=== PATIENT | male | born 1975 | race Two or more races ===

== ENCOUNTER 2022-11-10 16:12 | Outpatient (REF) | payer MEDICAID, SELFPAY | END 2022-11-10 16:13 | disposition home or self-care (01) | LOC: HO.HHCLNP 16:12 | PROVIDERS: Visit Provider Emergency Medicine | DX: R10.13 Epigastric pain (principal) | CPT/HCPCS: 87338 ==

== ENCOUNTER 2022-11-23 10:43 | Outpatient (AMB) | payer MEDICAID, SELFPAY ==
--- NOTE | 2022-11-23 10:45 | MHC.OFFVIS ---
Intake Vital Signs 11/23/22 10:49 Height 5 ft 7 in Weight 159 lb BMI 24.9 BP 119/68 Blood Pressure Location Rt brachial Position Sitting Pulse 87 Intake Visit Reasons: Inguinal hernia Intake Note: Patient referred for inguinal hernia. C/o pain on rt lower abd. Has been present for 2 yrs. Denies constipation. 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 Because of progression of symptoms, presents here for further evaluation. Patient has no other GI issues or complaints. He is tolerating a diet he is having normal bowel habits. Does occasional heavy lifting. Chart was reviewed patient evaluated; patient was recently incarcerated [facility] Medical History (Updated 11/23/22 @ 10:53 by JEROME Ashby) Anxiety Depression Anemia Social History (Updated 11/23/22 @ 10:52 by JEROME Ashby) Tobacco use type: Smokeless Tobacco Physical Exam Vital Signs: Last Vital Signs Pulse 87 11/23/22 10:49 BP 119/68 11/23/22 10:49 BMI result Body Mass Index 24.9 Const Other: Multiple tattoos throughout upper chest and extremities and neck. Chest Other: Chest breath sounds bilaterally, HS 1 and 2. GI Other: Patient was examined both supine and standing with Valsalva. Abdomen soft, scaphoid. Small approximately 2 cm umbilical hernia reducible. Left groin negative. Genitalia within normal limits. Very large/complete/scrotal right inguinal hernia. Reducible. Assessment & Plan Assessment & Plan (1) Right inguinal hernia: Code(s): K40.90 - Unilateral inguinal hernia, without obstruction or gangrene, not specified as recurrent (2) Umbilical hernia: Code(s): K42.9 - Umbilical hernia without obstruction or gangrene Plan I discussed with the patient risks, benefits, alternatives of open repair with mesh of both right inguinal hernia and umbilical hernia. This included but not limited to bleeding, infection, recurrence, numbness, pain, scarring the patient wishes to proceed. All questions were answered. Arrangements will be made for this. Coding Level of Care Code New Pt Level 5 (83133) Diagnoses Right inguinal hernia K40.90 Umbilical hernia K42.9
[2022-11-23 10:49] VITALS: BP 119/68; PULSE 87; BMI 24.9
== END 2022-11-23 11:13 | disposition home or self-care (01) ==
PROVIDERS: PCP Emergency Medicine; Referring Provider Emergency Medicine; Visit Provider Surgery
DX: K40.90 Unilateral inguinal hernia, without obstruction or gangrene, not specified as recurrent (principal); K42.9 Umbilical hernia without obstruction or gangrene
CPT/HCPCS: 99204

== ENCOUNTER → 2022-11-23 10:43 | Outpatient (BNVA) | payer MEDICAID, SELFPAY | PROVIDERS: PCP Emergency Medicine; Referring Provider Emergency Medicine; Visit Provider Surgery ==

== ENCOUNTER 2022-11-26 14:10 | Outpatient (REF) | payer MEDICAID, SELFPAY ==
[2022-11-26 15:57] LABS: MANUAL DIFF FLAG NO
[2022-11-26 16:12] LABS: Basophils Absolute Auto 0.1 X10*3/uL (0.0-0.2); Basophils Percent Auto 0.6 % (0-2); Eosinophils Absolute Auto 0.2 X10*3/uL (0.0-0.4); Eosinophils Percent Auto 1.8 % (0-4); Hematocrit 40.4 % (42.0-52.0); Hemoglobin 12.5 g/dl (14.0-18.0); Imm Gran Abs Auto 0.18 X10*3/uL (0.00-0.03); Imm Gran Pct Auto 1.5 % (0.0-0.4); Lymphocytes Absolute Auto 2.6 X10*3/uL (1.2-4.9); Lymphocytes Percent Auto 21.7 % (20-40); Mean Corpuscular HGB Conc 30.9 g/dl (31.0-36.0); Mean Corpuscular Volume 67.9 fL (80.0-98.0); Mean Platelet Volume 10.5 fL (9.4-12.4); Monocytes Absolute Auto 1.4 X10*3/uL (0.1-1.2); Monocytes Percent Auto 11.7 % (2-11); Neutrophils Absolute Auto 7.5 x10*3/uL (2.0-8.3); Neutrophils Percent Auto 62.7 % (45-73); Platelet Count 335 X10*3/uL (160-400); Red Blood Count 5.95 X10*6/uL (4.60-5.80); Red Cell Distribution Width 17.2 % (11.0-16.0)
[2022-11-26 16:24] LABS: Alanine Aminotransferase 46 U/L (0-40); Albumin Level 4.1 g/dL (3.5-5.0); Alkaline Phosphatase 68 U/L (39-117); Anion Gap 13 (12-20); Aspartate Amino Transferase 44 U/L (5-37); Bilirubin Total 0.3 mg/dL (0.0-1.0); Blood Urea Nitrogen 12 mg/dL (9-16); Calcium 9.7 mg/dL (8.4-10.2); Carbon Dioxide 26 mmol/L (22-29); Chloride 104 mmol/L (96-108); Estimated Glomerular Filt Rate > 60; Glucose Random 77 mg/dL (60-115); Potassium 4.1 mmol/L (3.3-5.1); Sodium 139 mmol/L (135-145); Total Protein 7.4 g/dL (6.5-8.0)
== END 2022-11-26 14:11 | disposition home or self-care (01) ==
LOC: HO.HHCL 14:10
PROVIDERS: Visit Provider Internal Medicine Geriatric Medicine
DX: K29.70 Gastritis, unspecified, without bleeding (principal); B96.81 Helicobacter pylori [H. pylori] as the cause of diseases classified elsewhere; D64.9 Anemia, unspecified
CPT/HCPCS: 36415; 80053; 85025

== ENCOUNTER 2022-11-29 08:20 | Outpatient (REF) | payer MEDICAID, SELFPAY ==
[2022-11-29 12:13] LABS: Cholesterol 212 mg/dL (<200); HDL Cholesterol 44 mg/dL (>40); LDL Cholesterol Calculated 143 mg/dL (<100); Triglycerides 127 mg/dL (<150)
== END 2022-11-29 08:21 | disposition home or self-care (01) ==
LOC: HO.HHCL 08:20
PROVIDERS: Visit Provider Internal Medicine Geriatric Medicine
DX: Z13.220 Encounter for screening for lipoid disorders (principal)
CPT/HCPCS: 36415; 80061

== ENCOUNTER 2022-12-01 07:14 | Day surgery (SDC) | payer MEDICAID, SELFPAY ==
[2022-11-29 10:15] VITALS: BMI 24.9
--- NOTE | 2022-11-30 10:35 | HO.ANESPROP2 ---
Documented by User: Claudia Medina NP 11/30/22 10:39 HPI - Anesthesia Eval Consult details Narrative: 47yo M for Right Open Hernia Repair Inguinal, Open Umblilical Hernia PMFSH Active Problems Active Problems: All Active Problems (Updated 11/29/22 @ 10:13 by Jessica Meyre RN) Umbilical hernia (Acute) Right inguinal hernia (Acute) Past Medical History Medical History (Updated 11/29/22 @ 10:14 by Jessica Meyer RN) GERD (gastroesophageal reflux disease) Anxiety Depression Anemia Surgical History Surgical History (Updated 11/29/22 @ 10:13 by Jessica Meyer RN) History of open reduction and internal fixation (ORIF) procedure Surgical history unknown Social History Social History (Updated 11/29/22 @ 10:13 by Jessica Meyer RN) Patient Tobacco Use Status: Current everyday Tobacco user Tobacco use type: Smokeless Tobacco Use of substances other than those prescribed or required for medical reasons: Yes Are you DNR?: No Advance Directives: No Advance Directives Information Provided: Yes Meds Allergies Allergy/AdvReac Type Severity Reaction Status Date / Time No Known Allergies Allergy Verified 11/23/22 10:51 Home Medications Medication Instructions Recorded Confirmed Last Taken Type famotidine 20 mg tablet 20 mg PO BID 11/29/22 11/29/22 12/01/22 06:00 History omeprazole 20 mg capsule,delayed 20 mg PO DAILY 11/29/22 12/01/22 12/01/22 06:00 History release acetaminophen 500 mg tablet 1,000 mg PO Q6H PRN moderate pain 12/01/22 12/01/22 12/01/22 06:00 History Exam Exam Date and Time: November 30, 2022 1035 Height,Weight and Vital Signs: Height 5 ft 7 in Weight 72.121 kg Pertinent Lab Results Pertinent Lab Results: Laboratory Tests 11/26/22 14:13 WBC 12.0 H Hgb 12.5 L Hct 40.4 L Plt Count 335 Sodium 139 Potassium 4.1 Chloride 104 Carbon Dioxide 26 BUN 12 Creatinine 0.79 Assessment and Plan Assessment Anesthesia Assessment: Chart Reviewed Documented by User: Beto Lim MD 12/01/22 10:54 HPI - Anesthesia Eval Consult details Narrative: 47yo M for Right Open Hernia Repair Inguinal, Open Umblilical Hernia GERD PMFSH Past Medical History Medical History (Updated 11/29/22 @ 10:14 by Jessica Meyer RN) GERD (gastroesophageal reflux disease) Anxiety Depression Anemia Functional capacity: independent ambulation Family History Family history of problems with anesthesia: No Surgical History Surgical History (Updated 11/29/22 @ 10:13 by Jessica Meyer RN) History of open reduction and internal fixation (ORIF) procedure Surgical history unknown History of Problems with Anesthesia: No Social History Social History (Updated 11/29/22 @ 10:13 by Jessica Meyer RN) Patient Tobacco Use Status: Current everyday Tobacco user Tobacco use type: Smokeless Tobacco Use of substances other than those prescribed or required for medical reasons: Yes Are you DNR?: No Advance Directives: No Advance Directives Information Provided: Yes Meds Allergies Allergy/AdvReac Type Severity Reaction Status Date / Time No Known Allergies Allergy Verified 11/23/22 10:51 Home Medications Medication Instructions Recorded Confirmed Last Taken Type famotidine 20 mg tablet 20 mg PO BID 11/29/22 11/29/22 12/01/22 06:00 History omeprazole 20 mg capsule,delayed 20 mg PO DAILY 11/29/22 12/01/22 12/01/22 06:00 History release acetaminophen 500 mg tablet 1,000 mg PO Q6H PRN moderate pain 12/01/22 12/01/22 12/01/22 06:00 History Exam Airway Mallampati Class: III TM Dist: <=3cm Neck ROM: Full Loose/Missing/Broken Teeth: Yes Assessment and Plan Assessment Anesthesia Assessment: Anesthesia Plan Discussed Final Anesthetic Review Family History of Problems with Anesthesia: No History of Problems with Anesthesia: No NPO: Yes ASA Class: II Final Preanesthetic Review: Meds/Allgs Chart Reviewed, Consent Obtained/Reviewed and Anes Risks/Benef Reviewed Patient Risk: Intermediate Procedure Risk: Intermediate Anesthetic Plan Anesthetic Plan: GA and Agree w/ Assess. and Plan Disposition: Standard PACU
--- NOTE | 2022-11-30 14:28 | MHC.SHP ---
Pre-Procedural Eval Section A Date of Service: 11/30/22 The patient is an INPATIENT: No Changes since office visit: No Cold of Flu in the past 2 weeks, No New Medical Problems, No Changes in Medication and No Patient answered all questions The History & Physical has been completed within 30 days and I have reviewed it.: Yes Section B Chief Complaint: Unilateral inguinal hernia, without obstruction or Allergies: Allergies Allergy/AdvReac Type Severity Reaction Status Date / Time No Known Allergies Allergy Verified 11/23/22 10:51 Plan I have reviewed the history and physical and performed a pertinent physical examination on my patient. No changes have occurred unless specified. Time Spent With Patient Time: Total time managing care of this patient today ____ minutes.
[2022-12-01] VITALS (10 sets, daily range): BP systolic 109–133; BP diastolic 72–90; PULSE 58–70; RESP 16–20; TEMP 36.6–36.8; O2SAT 98–100
[2022-12-01] MEDS: Lactated Ringers 1,000 ML 100 ML IVCONT (08:23)
--- NOTE | 2022-12-01 10:52 | W.PM.OPN ---
Operative Note Operative Note Date of Service: 12/01/22 Narrative: Preoperative diagnosis: [] 1. right complete/scrotal inguinal hernia 2. Incarcerated umbilical hernia Postop diagnosis: [] same Procedure [] 1. open right inguinal herniorrhaphy with Bard mesh 2. Open repair incarcerated umbilical hernia with Bard mesh Surgeon: [ [place]] Parts Facilitator: [] Type of Anesthesia: [] general Indication for surgery: [] 1.large Indirect complete right inguinal hernia extending into the scrotum. 2. Incarcerated umbilical hernia approximately 2 cm with omental contents Findings: [] patient brought to the operating room, placed on operative table in supine position, and after adequate level of general anesthesia was induced, the patient's abdomen the right groin and scrotum were prepped and draped in usual sterile fashion. Commencing with the right groin, a small right rikki inguinal incision was made and carried down through skin, subcutaneous tissue, Tree's fascia. External oblique fibers were opened direction with care to isolate and preserve the ilioinguinal nerve throughout the procedure. Spermatic cord was identified and retracted from the field. No direct hernia was demonstrated. A very large indirect hernia sac extended into the scrotum. This was from the cord structures. The indirect hernia was reduced. A Bard plug was placed in the indirect defect, and sutured inferiorly to the inguinal ligament, and superiorly to the transversalis fascia using interrupted 0 Ethibond suture. A completion the procedure, mesh was in good position and covered inguinal floor with no gaps and no tension. Was irrigated, secured hemostasis, and closed in the following manner; external oblique fascia was closed using running 2-0 Vicryl suture. Tree's fascia was reapproximated using up to 3-0 Vicryl sutures. Interrupted inverted deep dermal 3-0 Vicryl sutures followed by running subcuticular 4-0 Vicryl sutures were placed. Steri-Strips and sterile dressings were applied. Next the umbilical hernia was approached using a small infraumbilical incision carried down through skin, subcutaneous tissue, where hernia sac was identified and from the posterior aspect of the umbilicus. Dissection was carried down to the fascia with the sac was opened and incarcerated omental contents along with sac were amputated using Bovie. Fascia margins were circumferentially cleared. A Bard mesh was placed in this defect, and the superficial layer of the mesh was sutured to the fascia a circumferentially using interrupted 0 Ethibond suture. At completion procedure, mesh was in good position with no gaps and no tension. Wound was irrigated, secured hemostasis. Closed the following manner; posterior aspect of the umbilicus was tacked to the wound floor using up to 3-0 Vicryl sutures. Skin was closed using interrupted inverted dermal 3-0 Vicryl sutures followed by Steri-Strips and sterile dressings. Each wound was infiltrated 0.5% Marcaine / 1% lidocaine. Sponge, needle, instrument counts reported correct. Patient tolerated the procedure well and emerged anesthesia stable condition. EBL minimal. Ipsilateral testicle was intrascrotal at completion of the procedure.
[2022-12-01] MEDS: oxyCODONE HCl Immed Release 5 MG TABLET PO (11:03)
[2022-12-01] MEDS: Acetaminophen 325 MG TABLET 650 MG PO (11:03)
[2022-12-01] MEDS: HYDROmorphone HCl 0.5 MG/0.5 ML SYRINGE 0.25 MG IVPUSH ×2 (11:04→11:25)
== END 2022-12-01 12:11 | disposition home or self-care (01) ==
PROVIDERS: PCP Internal Medicine Geriatric Medicine; Visit Provider Surgery
PROC: (CPT 49505; principal; 2022-12-01 09:30)
DX: K40.90 Unilateral inguinal hernia, without obstruction or gangrene, not specified as recurrent (principal); K42.0 Umbilical hernia with obstruction, without gangrene; K21.9 Gastro-esophageal reflux disease without esophagitis; D64.9 Anemia, unspecified; F32.A Depression, unspecified; F41.9 Anxiety disorder, unspecified; Z79.899 Other long term (current) drug therapy; F17.290 Nicotine dependence, other tobacco product, uncomplicated
CPT/HCPCS: 49505; 49592; 88304; C1781; J0690; J1100; J1170; J2250; J2405; J2795

== ENCOUNTER → 2022-12-01 07:14 | Outpatient (BNV) | payer MEDICAID, SELFPAY | PROVIDERS: PCP Internal Medicine Geriatric Medicine; Visit Provider Surgery | DX: K40.90 Unilateral inguinal hernia, without obstruction or gangrene, not specified as recurrent (principal); K43.0 Incisional hernia with obstruction, without gangrene | CPT/HCPCS: 49505; 49592 ==

== ENCOUNTER 2022-12-13 10:58 | Outpatient (AMB) | payer MEDICAID, SELFPAY ==
--- NOTE | 2022-12-13 11:17 | MHC.OFFVIS ---
Intake Vital Signs 12/13/22 11:24 Weight 158 lb BP 112/63 Blood Pressure Location Rt brachial Position Sitting Pulse 75 Intake Visit Reasons: S/p open RIH & Umbilical hernia repairs Intake Note: Patient here s/p open RIH and umbilical hernia repairs. Reports incisions healing well. Denies bleeding or oozing. Finished rx pain meds. 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 Aside from incisional discomfort is doing well. He is tolerating a diet having normal bowel habits. He has been increasing his activity level. [facility] Medical History GERD (gastroesophageal reflux disease) Anxiety Depression Anemia Surgical History Right inguinal hernia (12/01/22) Umbilical hernia (12/01/22) History of open reduction and internal fixation (ORIF) procedure Surgical history unknown Social History Patient Tobacco Use Status: Current everyday Tobacco user Tobacco use type: Smokeless Tobacco Physical Exam Vital Signs: Last Vital Signs Pulse 75 12/13/22 11:24 BP 112/63 12/13/22 11:24 GI Other: Umbilical and right groin wounds well healed. Assessment & Plan Assessment & Plan (1) Right inguinal hernia: Onset Date: 12/01/22 Comment: Dr. Pascual Salvador Code(s): K40.90 - Unilateral inguinal hernia, without obstruction or gangrene, not specified as recurrent (2) Umbilical hernia: Onset Date: 12/01/22 Comment: Dr. Pascual Salvador Code(s): K42.9 - Umbilical hernia without obstruction or gangrene Plan Patient has been given local instructions, and will follow-up p.r.n.. Incidentally, he has some penile cysts which he wishes to have evaluated by Urology. Arrangements were made for this. Coding Level of Care Code Global (22873) Diagnoses Right inguinal hernia K40.90 Umbilical hernia K42.9
[2022-12-13 11:24] VITALS: BP 112/63; PULSE 75
== END 2022-12-13 11:49 | disposition home or self-care (01) ==
PROVIDERS: PCP Emergency Medicine; Visit Provider Surgery
DX: K40.90 Unilateral inguinal hernia, without obstruction or gangrene, not specified as recurrent (principal); K42.9 Umbilical hernia without obstruction or gangrene
CPT/HCPCS: 99024

== ENCOUNTER → 2022-12-13 10:58 | Outpatient (BNVA) | payer MEDICAID, SELFPAY | PROVIDERS: PCP Emergency Medicine; Visit Provider Surgery ==

== ENCOUNTER 2023-05-13 15:27 | Outpatient (REF) | payer MEDICAID, SELFPAY ==
[2023-05-13 16:55] LABS: Basophils Percent Auto 0.4 % (0-2); Eosinophils Absolute Auto 0.1 X10*3/uL (0.0-0.4); Eosinophils Percent Auto 0.7 % (0-4); Hematocrit 41.1 % (42.0-52.0); Hemoglobin 12.9 g/dl (14.0-18.0); Imm Gran Abs Auto 0.04 X10*3/uL (0.00-0.03); Imm Gran Pct Auto 0.4 % (0.0-0.4); Lymphocytes Absolute Auto 2.6 X10*3/uL (1.2-4.9); Lymphocytes Percent Auto 23.6 % (20-40); MANUAL DIFF FLAG SCAN; Mean Corpuscular HGB Conc 31.4 g/dl (31.0-36.0); Mean Corpuscular Hemoglobin 21.3 pg (27.0-33.0); Mean Corpuscular Volume 67.9 fL (80.0-98.0); Mean Platelet Volume 10.6 fL (9.4-12.4); Monocytes Absolute Auto 1.1 X10*3/uL (0.1-1.2); Monocytes Percent Auto 10.4 % (2-11); Neutrophils Percent Auto 64.5 % (45-73); Platelet Count 274 X10*3/uL (160-400); Red Blood Count 6.05 X10*6/uL (4.60-5.80); Red Cell Distribution Width 18.8 % (11.0-16.0); SCAN SMEAR FLAG 1; White Blood Count 10.9 X10*3/uL (4.8-10.8)
[2023-05-13 16:56] LABS: PLT ABN DIST 1
[2023-05-13 17:49] LABS: SLIDE REVIEW VERIFIED
[2023-05-13 18:39] LABS: Alanine Aminotransferase 12 U/L (0-40); Albumin Level 4.1 g/dL (3.5-5.0); Alkaline Phosphatase 67 U/L (39-117); Aspartate Amino Transferase 18 U/L (5-37); Bilirubin Direct 0.1 mg/dL (0.0-0.5); Bilirubin Total 0.3 mg/dL (0.0-1.0); Iron 65 mcg/dL (45-160); Percent Iron Saturation 21 % (15-50); Total Iron Binding Capacity 308 mcg/dL (228-428); Total Protein 7.4 g/dL (6.5-8.0); Unsaturated Iron Binding 243 ug/dL
[2023-05-13 18:53] LABS: Ferritin 45 ng/mL (20-250)
[2023-05-16 08:41] LABS: HBS Num1 0.24 mIU/mL (0-7.99); HBsAGNum1 0.43 S/CO (0.00-0.99); Hepatitis B Core Antibody Nonreactive (Nonreactive); Hepatitis B Surface Antigen Negative (Negative); ~Hepatitis B Surface Antibody NONREACTIVE (Nonreactive)
== END 2023-05-13 15:28 | disposition home or self-care (01) ==
LOC: HO.HHCL 15:27
PROVIDERS: Visit Provider Nurse Practitioner
DX: Z11.3 Encounter for screening for infections with a predominantly sexual mode of transmission (principal); D64.9 Anemia, unspecified; R74.8 Abnormal levels of other serum enzymes
CPT/HCPCS: 36415; 80076; 82728; 83540; 85025; 86704; 86706; 87340

== ENCOUNTER 2023-08-18 21:09 | Emergency (ER) | payer OTHER, SELFPAY ==
--- NOTE | ~2023-08-18 | XR_ITS ---
EXAMINATION: XR ELBOW, LEFT CLINICAL INFORMATION: Pain and swelling after trauma COMPARISON: None available. TECHNIQUE: AP, lateral, and oblique views of the left elbow. FINDINGS: There is soft tissue swelling overlying the olecranon. The bones and soft tissues are otherwise unremarkable. No fracture or joint effusion. Alignment is anatomic. Joint spaces are maintained. XR/XR elbow LT min 3V IMPRESSION: Soft tissue swelling overlying the olecranon. No fracture or malalignment.
[2023-08-18 21:11] VITALS: BP 117/73; PULSE 79; RESP 16; TEMP 36.7; O2SAT 99; BMI 25.1
--- NOTE | 2023-08-18 21:46 | ED_ITS ---
HPI - Extremity Problem General Chief complaint: Extremity Injury, Upper Stated complaint: work inj, elbow swelling Time Seen by Provider: 08/18/23 21:46 Source: patient Mode of arrival: ambulatory Limitations: no limitations History of Present Illness ED Provider: Kali Wiseman PA-C HPI Narrative: 47 yo male presents to the ER for evaluation of left elbow swelling that started 1.5 hours ago after he hit it against a hard object at work. He reports that he didn't hit it that hard but developed significant swelling to the elbow shortly after. He is able to fully extend and flex the elbow w/ minimal pain. no numbness, tingling or weakness. no open wounds MD Complaint: joint swelling Onset (ago): hour(s) Pain Consistency: constant Location: left and elbow Severity scale (1-10): 2 Quality: aching Radiation: none Relieving factors: rest Exacerbating factors: palpation Associated symptoms: denies other symptoms Related Data Home Medications ?Medication ?Instructions ?Recorded ?Confirmed famotidine 20 mg tablet 20 mg PO BID 11/29/22 11/29/22 omeprazole 20 mg capsule,delayed 20 mg PO DAILY 11/29/22 12/01/22 release acetaminophen 500 mg tablet 1,000 mg PO Q6H PRN moderate pain 12/01/22 12/01/22 Allergies Allergy/AdvReac Type Severity Reaction Status Date / Time No Known Allergies Allergy Verified 08/18/23 21:15 Review of Systems Review of Systems: Yes all other systems are reviewed and are negative PMFSH Past Medical History Medical History GERD (gastroesophageal reflux disease) Anxiety Depression Anemia Surgical History Right inguinal hernia (12/01/22) Umbilical hernia (12/01/22) History of open reduction and internal fixation (ORIF) procedure Surgical history unknown Social History Social History Patient Tobacco Use Status: Current everyday Tobacco user Tobacco use type: Smokeless Tobacco Advance Directives: No Advance Directives Information Provided: No Physical Exam Vital Signs: Vital Signs: Last Vital Signs Temp 98.1 F 08/18/23 22:28 Pulse 79 08/18/23 22:28 Resp 16 08/18/23 22:28 BP 117/73 08/18/23 22:28 Pulse Ox 99 08/18/23 22:28 O2 Del Method Room Air 08/18/23 22:28 BMI result Body Mass Index 25.1 Appearance: Alert. Oriented X3. No acute distress. HEENT: normal inspection CVS: Normal heart rate and rhythm. Pulses normal. Respiratory: No respiratory distress. Skin: Skin warm and dry. Normal skin color. Normal skin turgor. No rashes. Extremities: left elbow with moderate swelling in the area of the bursa, minimal tenderness, soft and compressible. no erythema or warmth, FROM of the elbow, NV intact distally Neuro: Oriented X 3. No motor deficit. No sensory deficit. Medical Decision Making Medical Decision Making MDM Narrative: 47-year-old male presents the ER for evaluation of acute onset of left elbow swelling after minimal trauma. Full range of motion on exam with no point tenderness. X-ray today negative for acute fracture. Clinical presentation most consistent with acute bursitis. Placed in Carter wrap for compression. Patient counseled on diagnosis and management. Stable for discharge home. Patient agrees with plan all questions were answered Differential Diagnosis Differential Diagnoses: The differential diagnosis associated with the presentation includes bursitis, elbow fracture, gout, septic joint Independent Interpretation I performed an independent interpretation of an: Plain X-Ray Interpretation: No acute fracture appreciated, agree with radiology read Radiology Impression Discussion of test interpretation with radiology: I have reviewed the radiologist's reading. Radiologist Impression: EXAMINATION: XR ELBOW, LEFT CLINICAL INFORMATION: Pain and swelling after trauma COMPARISON: None available. TECHNIQUE: AP, lateral, and oblique views of the left elbow. FINDINGS: There is soft tissue swelling overlying the olecranon. The bones and soft tissues are otherwise unremarkable. No fracture or joint effusion. Alignment is anatomic. Joint spaces are maintained. XR/XR elbow LT min 3V IMPRESSION: Soft tissue swelling overlying the olecranon. No fracture or malalignment. External Record Review External record reviewed: Prior outpatient labs and Prior outpatient radiology Prescription Management I considered prescription management with: Pain Medication Critical Care Time Critical Care Time Critical Care Time: No Discharge Plan Discharge Clinical Impression: Bursitis of left elbow Qualifiers: Elbow bursitis location: unspecified Qualified Code(s): M70.32 - Other bursitis of elbow, left elbow Patient Disposition: Home, Self-Care Instructions: Elbow Bursitis (ED) Additional Instructions: your x-ray today did not show any broken bones wear the CARTER wrap for compression ice and elevate your elbow when possible follow up with your primary care doctor as needed If you develop new or worsening symptoms call 911 or come back to the ER for further evaluation. Prescriptions: No Action famotidine 20 mg tablet 20 mg PO BID omeprazole 20 mg capsule,delayed release(DR/EC) 20 mg PO DAILY acetaminophen 500 mg tablet 1,000 mg PO Q6H PRN (Reason: moderate pain) Stand Alone Forms: Work/School Release Interventions: ED Discharge Assessment Last Done: 08/18/23 22:28 Discharge Date/Time: 08/18/23 22:29 Print Language: Palestinian
[2023-08-18 22:28] VITALS: BP 117/73; PULSE 79; RESP 16; TEMP 36.7; O2SAT 99
== END 2023-08-18 22:29 | disposition home or self-care (01) ==
PROVIDERS: Emergency Provider Internal Medicine
DX: S59.902A Unspecified injury of left elbow, initial encounter (principal); M70.32 Other bursitis of elbow, left elbow; Y29.XXXA Contact with blunt object, undetermined intent, initial encounter; Y93.9 Activity, unspecified; Y92.9 Unspecified place or not applicable; Y99.8 Other external cause status
CPT/HCPCS: 73080; 99282; 99283

== ENCOUNTER 2024-09-26 19:46 | Emergency (ER) | payer SELFPAY ==
[2024-09-26 19:52] VITALS: BP 155/76; PULSE 86; RESP 22; TEMP 37.1; O2SAT 94; BMI 21.3
--- NOTE | 2024-09-26 19:53 | ED_ITS ---
HPI - General Adult General Chief complaint: Dyspnea Stated complaint: asthma Time Seen by Provider: 09/26/24 21:09 Source: patient Mode of arrival: ambulatory Limitations: no limitations History of Present Illness ED Provider: Dr. Giselle Singleton HPI narrative: Patient comes to the emergency room complaining of shortness of breath , cough and wheezing. Patient states that as a child he used to have asthma but not as an adult. Patient denies fever chills. Patient reports that his symptoms started approximately 3 days ago. Denies any sick contacts. Related Data Home Medications ?Medication ?Instructions ?Recorded ?Confirmed famotidine 20 mg tablet 20 mg PO BID 11/29/22 omeprazole 20 mg capsule,delayed 20 mg PO DAILY 12/01/22 release acetaminophen 500 mg tablet 1,000 mg PO Q6H PRN modera te pain 12/01/22 12/01/22 Previous Rx's ?Medication ?Instructions ?Recorded albuterol sulfate 90 mcg/actuation 2 puff inhalation Q 4-6H PRN 09/26/24 aerosol inhaler (Ventolin HFA) shortness of breath or wheezing #8.5 grams benzonatate 100 mg capsule 100 mg PO TID PRN cough #12 caps 09/26/24 prednisone 50 mg tablet 50 mg PO DAILY #4 tabs 09/26 Allergies Allergy/AdvReac Type Severity Reaction Status Date / Time No Known Allergies Allergy Verified 09/26/24 19:56 Review of Systems Review of Systems: Constitutional : No Weight loss, No Fever, No Chills, No Night Sweats, No Fatigue, No Malaise ENT/Mouth : No Hearing loss, No Ear Pain, No Nasal Congestion, No Sinus Pain, No Hoarseness, No sore throat, No Rhinorrhea, No Swallowing Difficulty Eyes: No Eye Pain, No Swelling, No Redness, No Foreign Body, No Discharge, No Vision Changes Cardiovascular : No Chest Pain, No SOB, No Dyspnea on Exertion, No Orthopnea, No Edema, No Palpitations Respiratory : Complaining of cough, wheezing, shortness of breath Gastrointestinal : No Nausea, No Vomiting, No Diarrhea, No Constipation, No abdominal Pain, No Hematochezia, No Melena Genitourinary : no irregular bleeding, No Dysuria, No Urinary Frequency, No Hematuria, No Urinary Incontinence, No Urgency, No Flank Pain, No Urinary Flow Changes, No Hesitancy Musculoskeletal : No joint pain, No Myalgias, No Joint Swelling Skin : No Skin Lesions, No rash Neuro : No Weakness, No Numbness, No Paresthesias, No Loss of Consciousness, No Dizziness, No Headache Psych : No Anxiety/Panic, No Depression, No SI/HI/AH/VH, No Social Issues, Heme/Lymph: No Bruising, No Bleeding,No Lymphadenopathy Endocrine : No Polyuria, No Polydipsia, No Temperature Intolerance [facility] Past Medical History Medical History (Updated 09/26/24 @ 21:18 by Giselle Singleton MD) Asthma with exacerbation GERD (gastroesophageal reflux disease) Anxiety Depression Anemia Surgical History Right inguinal hernia (12/01/22) Umbilical hernia (12/01/22) History of open reduction and internal fixation (ORIF) procedure Surgical history unknown Social History Social History Patient Tobacco Use Status: Current everyday Tobacco user Tobacco use type: Smokeless Tobacco Advance Directives: No Advance Directives Information Provided: Yes Do you have a plan to hurt others: No Plan Physical Exam ED Exam Exam: Appearance: Alert. Oriented X3. No acute distress. Eyes: Pupils equal, round and reactive to light. ENT: Pharynx normal. Neck: Normal inspection. Neck supple. No lymph nodes noted. No crepitus CVS: Normal heart rate and rhythm. Pulses normal. Normal S1 and S2 Respiratory: No respiratory distress. Speaking in full sentences, bilateral wheezing, moderate air movement Abdomen: Soft and nontender. No rigidity. No distention. Skin: Skin warm and dry. Normal skin color. Normal skin turgor. Extremities: No lower extremity edema. No Lacerations. No Rash Neuro: Oriented X 3. No motor deficit. No sensory deficit. Moving all extremities. No slurred speech. CN 2 through 12 grossly intact Psych: calm, cooperative, normal affect Vital Signs: Vital Signs - 24 hr 09/26/24 19:52 09/26/24 20:16 09/26/24 20:37 Temperature 98.8 F Pulse Rate 86 89 103 H Respiratory Rate 22 H 20 18 Blood Pressure 155/76 H Pulse Oximetry 94 93 Oxygen Delivery Method Room Air Room Air BMI result Body Mass Index 21.3 Course Course Course Narrative: This is a rapid medical exam performed by Cuba Frazier NP: Additional HPI, ROS, PE not included below will be deferred to primary provider. Patient is a 48-year-old male with reported history of childhood asthma complaining of wheezing, cough and shortness of breath for the past 3 days. Denies fevers. Does not currently have any inhaler. Diffuse inspiratory and expiratory wheezing, O2 93% on room air. Family has been sick with similar sxs. Plan: need tx, viral panel Medications Administered Discontinued Medications Generic Name Dose Route Start Last Admin Trade Name Freq PRN Reason Stop Dose Admin Albuterol Sulfate 5 mg/ 0 mg 09/26/24 20:10 09/26/24 20:15 Albuterol/Ipratropium 3 ml INHALE 09/26/24 20:11 1 each ONCE ONE Administration Prednisone 40 mg 09/26/24 19:59 09/26/24 20:10 Prednisone 20 Mg Tablet PO 09/26/24 20:00 40 mg ONCE ONE Administration Medical Decision Making Medical Decision Making [facility] Narrative: My interpretation of labs: Serology negative for influenza COVID and RSV Chest x-ray does not show any acute abnormality On arrival to the ED, patient received p.o. prednisone and an nebulization treatment. When I examined the patient after the above-mentioned treatment, patient is talking full sentences, oxygen saturation 95% on room air, however, on auscultation patient is still sounds pretty tight and wheezing. I recommended IV medications and more nebulization treatments, then re- evaluation and then we would determine if patient needs to be discharged or admitted However, the patient states that he has family waiting for him in the waiting room and wishes to be discharged. Patient is aware that he has not fully recovered yet. There is a chance that his asthma exacerbation may reoccur any time. Patient states that if it happens, he will return. Asthma medications were sent to the patient's pharmacy. Differential Diagnosis Differential Diagnoses: The differential diagnosis associated with the presentation includes (Influenza, COVID, RSV, asthma exacerbation, viral URI) Admission/Observation Consideration of admission/observation: Escalation of care including admission /observation considered (Patient is still wheezing, with the patient that if he does not recover with further treatment here in the ED, he may need to be admitted. However, patient declined and would like to be discharged) Lab Data MDM Lab Attestation statement: I reviewed the patient's lab results. Labs: Lab Results 09/26/24 Range/Units 20:09 Influenza Type A (PCR) NEGATIVE (Negative) Influenza Type B (PCR) NEGATIVE (Negative) RSV RNA Qual (PCR) NEGATIVE (Negative) SARS-CoV-2 RNA (RT-PCR) NEGATIVE (Negative) Discharge Plan Discharge Clinical Impression: Asthma with exacerbation Patient Disposition: Left Against Medical Advice Instructions: Asthma (ED) Additional Instructions: Please follow-up with your primary care physician tomorrow. If you have any worsening or new symptoms, please return to the emergency room or call 911 Prescriptions: New prednisone 50 mg tablet 50 mg PO DAILY Qty: 4 0RF benzonatate 100 mg capsule 100 mg PO TID PRN (Reason: cough) Qty: 12 0RF albuterol sulfate [Ventolin HFA] 90 mcg/actuation HFA aerosol inhaler 2 puff inhalation Q4-6H PRN (Reason: shortness of breath or wheezing) Qty: 8.5 0RF No Action famotidine 20 mg tablet 20 mg PO BID omeprazole 20 mg capsule,delayed release(DR/EC) 20 mg PO DAILY acetaminophen 500 mg tablet 1,000 mg PO Q6H PRN (Reason: moderate pain) Stand Alone Forms: Work/School Release Print Language: Swedish
[2024-09-26] MEDS: Albuterol Sulfate 5 MG, Albuterol/Iprat 2.5/0.5MG 3 ML 3 ML INHALE (20:15)
[2024-09-26 20:16] VITALS: PULSE 89; RESP 20; O2SAT 94
[2024-09-26 20:37] VITALS: PULSE 103; RESP 18; O2SAT 93
[2024-09-26 20:51] LABS: Resp Syncy Virus RNA Qual PCR NEGATIVE (Negative); SARS COV2 PCR INHOUSE NEGATIVE (Negative)
[2024-09-26 21:33] VITALS: BP 120/70; PULSE 98; RESP 18; TEMP 36.9; O2SAT 93
== END 2024-09-26 21:34 | disposition left against medical advice (07) ==
PROVIDERS: Registered Nurse Emergency; Emergency Provider Emergency Medicine
DX: J45.901 Unspecified asthma with (acute) exacerbation (principal); R06.02 Shortness of breath; R05.9 Cough, unspecified; F17.210 Nicotine dependence, cigarettes, uncomplicated; Z03.818 Encounter for observation for suspected exposure to other biological agents ruled out
CPT/HCPCS: 87637; 94640; 99284